=== PATIENT | female | born 1975 | race Caucasian/White ===

== ENCOUNTER → 2020-07-05 16:00 | Outpatient (CLI) | payer OTHER, SELFPAY ==
--- NOTE | ~2020-07-05 | MM_ITS ---
EXAMINATION: MM screening andrew BI w minerva HISTORY: Screening TECHNIQUE: Craniocaudal and mediolateral oblique 3-D tomosynthesis images were obtained and synthetic 2-D images were generated. CAD analysis was submitted and interpreted. COMPARISON: Comparison to multiple prior studies sequentially, with oldest reviewed study dated 11/29. BREAST PARENCHYMAL COMPOSITION: There are scattered areas of fibroglandular density. FINDINGS: There is no evidence of suspicious mass, calcification, or architectural distortion to sugg est malignancy in either breast. There has been no suspicious interval change. IMPRESSION: 1. No mammographic evidence of malignancy. 2. Recommend routine screening mammography in one year. BI-RADS Category 1: Negative Reviewed, dictated and finalized at location A.
== END ==
PROVIDERS: PCP Obstetrics & Gynecology; Visit Provider Obstetrics & Gynecology
DX: Z12.31 Encounter for screening mammogram for malignant neoplasm of breast (principal)
CPT/HCPCS: 77063; 77067

== ENCOUNTER 2021-02-08 11:17 | Outpatient (CLI) | payer OTHER, SELFPAY | END 2021-02-08 11:18 | disposition home or self-care (01) | LOC: ANHCOVIDVC 11:17 | PROVIDERS: PCP Internal Medicine | DX: Z23 Encounter for immunization (principal) | CPT/HCPCS: 0001A; 91300 ==

== ENCOUNTER 2022-03-19 15:41 | Emergency (ER) | payer OTHER, SELFPAY ==
[2022-03-19 15:46] VITALS: BP 135/87; PULSE 78; RESP 16; TEMP 36.4; O2SAT 100
--- NOTE | 2022-03-19 15:53 | ED.SKABFB ---
HPI - Skin/Abscess/Foreign Bdy General Chief complaint: Skin/Abscess/Foreign Body Stated complaint: INFECTION ON WRIST Time Seen by Provider: 03/19/22 15:44 Source: patient and RN notes reviewed History of Present Illness HPI narrative: Patient is a 46-year-old female who presents the urgent care with complaints of possible staph to the left wrist. Patient states that either yesterday, or the day before, she was possibly bit by a mosquito and proceeded to pick and tried to pop the area. Patient states that it has caused increase swelling and now pustular lesion. Patient denies of any fevers, nausea or vomiting. Patient is currently taking doxycycline for rosacea once per day, 100 mg tablets. Patient states that she is use clobetasol on the wound. No other acute complaints. No acute distress noted. Patient aware of the plan of care. Some parts of this dictation were generated by voice recognition software and may contain typographical and/or grammatical inaccuracies. Related Data Home Medications Medication Instructions Recorded Confirmed doxycycline hyclate 03/19/22 sulfacetamide sodium (acne) TOPICAL 03/19/22 Allergies Allergy/AdvReac Type Severity Reaction Status Date / Time erythromycin base Allergy Unknown Unknown Verified 12/31/18 07:58 Erythromycin Allergy Unknown Uncoded 04/25/03 14:56 ERYTHROMYCIN (Generic Allergy Y Uncoded 04/25/03 15:41 Allergy) MACROLIDES Allergy Uncoded 02/14/09 15:37 Review of Systems Review of Systems: CONSTITUTIONAL: Denies fever, chills, or sweats. EYES: Denies visual changes, redness, or discharge. ENT: Denies rhinorrhea, congestion, sore throat, or otalgia. CARDIOVASCULAR: Denies chest pain, palpitations, or edema. RESPIRATORY: Denies cough or dyspnea. GASTROINTESTINAL: Denies abdominal pain, nausea, vomiting, or diarrhea. GENITOURINARY: Denies dysuria or hematuria. SKIN: Reports of possible staph infection to the left wrist MUSCULOSKELETAL: Denies back pain, joint pain, or myalgia. NEUROLOGIC: Denies headache, numbness, or weakness. All other systems reviewed are negative, except as documented in HPI. [facility] Family History Family History Father Diabetes mellitus Depression Hypertension Sibling Depression Mother Patient's mother is in good health Social History Social History Smoking status: Never smoker Alcohol intake: current Comments At the time of my signature, I reviewed and agree with the nursing past medical, surgical, social, and family history. There is no relevant family history pertinent to the patient complaint. Exam Narrative: GENERAL: This is a well-nourished, well-developed patient, in no apparent distress. HEAD: normocephalic, atraumatic. EYES: PERRL. Sclera clear/white. Vision is grossly intact. EARS: External ears normal NOSE: External nose normal with no obvious nasal discharge, nares without redness, no rhinorrhea. THROAT: Mucous membranes moist NECK: Neck supple SKIN: 6 x 2 cm area of edema to the left ulna I will wrist aspect with 1 cm vesicular lesion. Warm, intact with no suspicious lesions or rash, good texture and turgor. NEURO: awake, alert, and oriented to person, place and time. There were no obvious focal neurologic abnormalities. EXTREMITIES: No clubbing, cyanosis, or edema. Course Course Level of Care: Express Care Visit Vital Signs Vital signs: Vital Signs Temperature 97.5 F L 03/19/22 15:46 Pulse Rate 78 03/19/22 15:46 Respiratory Rate 16 03/19/22 15:46 Blood Pressure 135/87 03/19/22 15:46 Pulse Oximetry 100 03/19/22 15:46 Temperature 97.5 F L 03/19/22 15:46 Pulse Rate 78 03/19/22 15:46 Respiratory Rate 16 03/19/22 15:46 Blood Pressure 135/87 03/19/22 15:46 Pulse Oximetry 100 03/19/22 15:46 Reviewed Procedures Other Procedure Procedure 1: Other Proced
== END 2022-03-19 16:05 | disposition home or self-care (01) ==
PROVIDERS: Emergency Provider Nurse Practitioner Family; PCP Internal Medicine
DX: B00.1 Herpesviral vesicular dermatitis (principal)
CPT/HCPCS: 10140; 87070; 87075; 87205; 99213; G0463

== ENCOUNTER 2025-09-04 09:03 | Day surgery (SDC) | payer OTHER, SELFPAY ==
[2025-08-23 09:34] VITALS: BMI 25.9
--- NOTE | 2025-09-04 09:31 | WPDANESEPPF ---
Anes - Initial Pre Proc Eval Procedure: Operation Date: 09/04/25 10:45 Proposed Procedures p Screening Colonoscopy - Bayron Simon MD Date/Time: 09/04/25 09:31 Surgeon: Bayron Simon MD Pre Op Diagnosis: Screening Patient Data Age: 49 Gender: F Height: 1.73 m Weight: 77.3 kg Allergies Allergy/AdvReac Type Severity Reaction Status Date / Time erythromycin base Allergy Unknown Unknown Verified 09/04/25 09:12 Home Medications ?Medication ?Instructions ?Recorded ?Confirmed ?Type No Home Medications 08/22/25 08/23/25 History Patient hx anesthesia problems: none Family hx anesthesia problems: none Results Review: All pre-operative results and documents have been reviewed as part of the pre-operative evaluation. [facility] Past Medical History Medical History (Updated 07/20/25 @ 23:15 by Ruma Barkley APRN, MARBLEIZING MACHINE TENDER-C) Impacted cerumen of right ear Fatigue Contact dermatitis and eczema due to cause Family History Family History Father Diabetes mellitus Depression Hypertension Sibling Depression Mother Patient's mother is in good health Social History Social History Smoking status: Never smoker Alcohol intake: current Drinks per week: 2 Alcohol use details: wine Substance use type: does not use Living arrangements: with family Spiritual care concerns: No Anes - Eval Final PreProcedure Day of Procedure 09/04/25 09:31 Heart: regular rate and rhythm Lungs: clear to auscultation Airway: Mallampati scale class 1 Neurological: alert and oriented Last oral intake: >/= 8 hours ASA classification: I Anesthetic plan: proceed Anesthesia type and monitoring: monitored anesthesia care Results Review: All pre-operative results and documents have been reviewed as part of the pre-operative evaluation. Informed Consent: The patient's anesthetic plan and its attendant risks and benefits were discussed with the patient/family/POA. Questions were solicited and answers provided to the satisfaction of the patient/family/POA.
--- OUTSIDE RECORDS SUMMARY | 2025-09-04 09:34 | XMS_ITS | Clinical Summary ---
Author Organization [facility] Address [address] [address] Care Team Providers Care Senior Java Developer Name Role Phone Rowdy Singh DO Primary Care Provider [phone] Source Comments [facility],non-owned Affiliates and Associated Physician Practices is amultiple site organization consisting of ambulatory clinics and hospital sitesin [place], [place], [place] and [place]. This disclosure is being madepursuant to the Care Everywhere program and may not contain all information available regarding this patient. Last updated 18.[facility] Allergies Active Allergy Reactions Criticality Noted Date Comments Erythromycin Urticaria,Itching Medium 02/21/2021 Medications * Be aware that medications may not be up to date on this document. Alwaysverify current medications with the patient. levonorgestrel (MIRENA, 52 MG,) 20 MCG/24HR IUD 1 (one) device by Intrauterine route as directed Active Active Problems Problem Noted Date Diagnosed Date Rosacea 10/09/2021 Immunizations Immunization Administration Dates Next Due FLU VACCINE QUAD IIV4 PF ID 09/04/2018 FLU VACCINE TRI IIV3 SPLIT IM (FLUVIRIN) 014 Family History Medical History Relation Name Comments CAD (Coronary Artery Disease) Father Diabetes - Type 2 Father Hypertension Father Other Mother endometriosis Relation Name Status Comments Father Mother Social History Tobacco Use Types Packs/Day Years Used Date Smoking Tobacco: Never Smokeless Tobacco: Never Tobacco Cessation:Counseling Given: Not Answered Alcohol Use Standard Drinks/Week Comments Yes 0 (1 standard drink = 0.6 oz pur e alcohol) 3/week PHQ-2 Answer Date Recorded Patient Health Questionnaire-2 Score 0 04/06/2025 Comments No Sex and Gender Information Value Date Recorded Sex Assigned at Not on file Legal Sex 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 Gender Identity Female 09/10/2021 12:07 PM RESEARCH INSTRUCTOR Sexual Orientation Not on file Last Filed Vital Signs Vital Sign Reading Time Taken Comments Blood Pressure 126/82 04/13/2025 9:20 AM CDT Pulse - - Temperature 36.4 C (97.6 F) 02/21/2021 1:57 PM CDT Respiratory Rate - - Oxygen Saturation - - Inhaled Oxygen Concentration - - Weight 76.4 kg (168 lb 6.4 oz) 04/13/2025 9:20 A M CDT Height 172.7 cm (5' 8) 04/13/2025 9:20 AM CDT Body Mass Index 25.61 04/13/2025 9:20 AM CDT Plan of Treatment Upcoming Encounters Date Type Department Care Team (Late st Contact Info) Description 04/19/2026 10:00 AM CDT Office Visit [facility] - EMERGENCY MEDICINE NURSE PRACTITIONER [address] [place] [address] Hubert Pineda MD [address] [place], [place] [id number] Health Maintenance Due Date Last Done Comments COLOGUARD (AGES 45-75) - COLON CA SCREENING 1973 COLON MONITORING 1973 COLONOSCOPY - COLON CA SCREENING 1973 CT COLONOGRAPHY - COLON CA SCREENING 1973 Colorectal Cancer Screening 1973 FIT - COLON CA SCREENING 1973 FLEX SIG - COLON CA SCREENING 1973 LIPID TESTING 1973 HIV SCREENING 1988 HEPATITIS C SCREENING 11/28/1991 DTAP/TDAP/TD VACCINES (1 - Tdap) 1992 HEPATITIS B VACCINE (1 of 3 - 19+ 3-dose series) 1992 SCREENING FOR DIABETES 04/02/2023 PNEUMOCOCCAL VACCINE 50+ (1 of 1 - PCV) 2023 ZOSTER VACCINE (1 of 2) 2023 COVID-19 VACCINE (2 - season) 2025 02/08/2021 INFLUENZA VACCINE (#1) 2025 09/04/2018, 2013 MAMMOGRAM 04/13/2027 04/13/2025, 02/01, 02/09/2023, Additional history exists PAP with HPV 04/07/2029 04/07/2024, 02/21/2021 DEPRESSION SCREENING Completed 04/13/2025, 04/07/2024, 04/02/2023 HIB VACCINE Aged Out No longer eligi ble based on patient's age to complete this topic HPV VACCINE Aged Out No longer eligi ble based on patient's age to complete this topic MENINGOCOCCAL (Group B) VACCINE SHARED DECISION-MAKING Aged Out No longer eligible based on patient's age to complete this topic MENINGOCOCCAL GROUPS A/C/Y/W VACCINE Aged Out No longer eligible based on patient's age to complete this topic Procedures Procedure Name Priority Date/Time Associated Diagnosis Comments MAMMO BILAT SCREENING W KASI Routine 04/13/2025 8:34 AM CDT Visit for screening mammogram HPV DETECTION HIGH RISK KHAI Routine 04/07/2024 10:21 AM CDT Well woman exam with routine gynecological exam from Last 3 Months or Most Recently Relevant to Health Maintenance Results * Mammo Bilat Screening W Kasi (04/13/2025 8:34 AM CDT) Anatomical Region Laterality Modality Breast Bilateral Mammography 04/13/2025 11:0 4 AM CDT Impressions 04/13/2025 11:05 AM CDT IMPRESSION: There is no mammographic evidence of malignancy. OVERALL FINAL ASSESSMENT: BI-RADS Category 1: Negative. Annual screening mammography is recommended. > Interpreting Provider: Milka Xavier MD on 04/13/2025 11:05 AM Narrative 04/13/2025 11:05 AM CDT EXAMINATION: BILATERAL DIGITAL SCREENING MAMMOGRAM AND BILATERAL BREAST TOMOSYNTHESIS HISTORY: Screening. COMPARISON: Serial examinations dating back to 2020. TECHNIQUE: BILATERAL digital breast tomosynthesis (DBT) and synthetic 2D digital mammogram images were obtained (bilateral craniocaudal and mediolateral oblique projections) including computer aided detection (CAD.) BREAST PARENCHYMAL COMPOSITION:Category C: The breasts are heterogeneously dense which may obscure small masses. MAMMOGRAM FINDINGS: There are no new suspicious masses, calcifications, or areas of architectural distortion in either breast, and there has been no significant interval change. Rowdy Singh DO MAMMO ORDERABLES Final Resu lt * HPV DETECTION HIGH RISK KHAI (04/07/2024 10:21 AM CDT) High Risk Human Papilloma Result Not detected Not detected 04/12/2024 9:[address] [facility] High Risk Human Papilloma Interp 04/12/2024 9:[address] [facility] Comment:High Risk Human Kashif lloma Virus was Not Detected. Pathology/Cytolo gy MISCELLANEOUS SAMPLES / Unknown 04/07/2024 10:21 AM CDT 04/08/2024 12:[address] [facility] - 04/12/2024 9:33 AM CDT Nucleic acid isolated from the specimen was analyzed with a nucleic acid amplification test (FDA approved Gen-Probe HPV Assay) to detect high risk human papilloma virus (Types: 16, 18, 31, 33, 35, 39, 45, 51, 52, 56, 58, 59, 66, and 68). The reference range is Not Detected. Comment: These test results should not be used as the sole basis for clinical assessment and treatment of patients. These results should always be correlated with other available data (cytology, histology, and clinical information). Hubert Pineda MD LAB - MICROBIOLOGY ORDERABLES Fi nal Result [facility] [address] [place] [address], [facility] [phone] from Last 3 Months or Most Recently Relevant to Health Maintenance Insurance HEALTH CARE Member Subscriber Plan / Payer (Ef fective 2020-Present) Name:Laney Tony Relation to Subscriber:Self Name:Laney Tony Payer ID:[id number] (NAIC) Type:HMO Address: [place] [id number] Care Teams Senior Java Developer Relationship Specialty Start Date End Date Rowdy Singh DO PCP - General 12/03/20
[2025-09-04 09:40] VITALS: BMI 25.4
[2025-09-04 09:41] VITALS: BP 150/102; PULSE 88; RESP 18; TEMP 37.1; O2SAT 100
--- NOTE | 2025-09-04 09:43 | P.HP_ITS ---
H&P: HPI History of Present Illness Date/Time: 09/04/25 09:43 Chief Complaint: Screening colonoscopy Narrative: This is the patient's first colonoscopy. There are no GI symptoms and there is no family history of colorectal cancer. Review of Systems Review of Systems: All systems reviewed & are unremarkable except as noted in HPI and below PMFSH Past Medical History Medical History (Updated 07/20/25 @ 23:15 by Ruma Barkley, HEALTH SERVICES COORDINATOR, CONSULTING SME-C) Impacted cerumen of right ear Fatigue Contact dermatitis and eczema due to cause Family History Family History Father Diabetes mellitus Depression Hypertension Sibling Depression Mother Patient's mother is in good health Social History Social History Smoking status: Never smoker Alcohol intake: current Drinks per week: 2 Alcohol use details: wine Substance use type: does not use Living arrangements: with family Spiritual care concerns: No Meds Home Medications and Allergies Home Medications ?Medication ?Instructions ?Recorded ?Confirmed ?Type No Home Medications 08/22/25 08/23/25 H istory Allergies Allergy/AdvReac Type Severity Reaction Status Date / Time erythromycin base Allergy Unknown Unknown Verified 09/04/25 09:12 Vital Signs Vital Signs - 24 hr 09/04/25 09:41 Temperature 98.8 F Pulse Rate 88 Respiratory Rate 18 Blood Pressure 150/102 H Pulse Oximetry 100 Oxygen Delivery Room Air Exam Const: General: cooperative and healthy appearing Resp: Effort & Inspection: normal respiratory effort and able to speak in complete sentences Auscultation: clear to auscultation bilaterally Cardio: Rate: regular rate Rhythm: regular rhythm GI: Inspection: normal to inspection GI Palp: No No hepatosplenomegaly present Auscultation: normal bowel sounds Rectal Exam: deferred Skin: General skin exam: normal color Psych: Appearance: grossly normal Mental Status: mental status grossly normal Assessment and Plan Assessment and plan (1) Screening for colon cancer: Code(s): Z12.11 - Encounter for screening for malignant neoplasm of colon Status: Acute Plan The patient is deemed a good candidate for the procedure. Consent signed. Will proceed.
[2025-09-04] MEDS: LACTATED RINGERS 1,000 ML 150 ML IV CONT (09:44)
[2025-09-04 10:11] VITALS: BP 139/86; PULSE 95; RESP 14; O2SAT 99
[2025-09-04 10:21] VITALS: BP 125/93; PULSE 79; RESP 16; O2SAT 99
[2025-09-04 10:31] VITALS: BP 148/105; PULSE 70; RESP 16; O2SAT 99
== END 2025-09-04 10:36 | disposition home or self-care (01) ==
PROVIDERS: PCP Internal Medicine; Referring Provider Clinical Nurse Specialist; Visit Provider Internal Medicine Gastroenterology
PROC: 0DJD8ZZ Inspection of Lower Intestinal Tract, Via Natural or Artificial Opening Endoscopic (ICD-10-PCS; CPT 45378; principal; 2025-09-04 10:45)
DX: Z12.11 Encounter for screening for malignant neoplasm of colon (principal)
CPT/HCPCS: 45378